=== PATIENT | female | born 1940 | race African-American/Black ===

== ENCOUNTER 2018-11-28 09:36 | Emergency (ER) | payer OTHER ==
[2018-11-28 09:50] VITALS: BP 147/67; PULSE 76; TEMP 98; BMI 27.3
--- NOTE | 2018-11-28 10:51 | PDOC ---
History of Present Illness - General Chief Complaint: Respiratory Stated Complaint: COLD SYMPTOMS / NECK PAIN Time Seen by Provider: 11/28/18 10:23 History Source: Patient Exam Limitations: No Limitations - History of Present Illness Initial Comments: 11/28/18 10:46 Patient is a 78F with history of hyperparathyroidism and osteoporosis here today complaining of 3 days of left ear pain and neck stiffness. Her daughters, at bedside, report that her hearing has been decreased on the left side as well. Denies fevers, chills, nausea, vomiting. Denies chest pain, shortness of breath. Endorses a mild cough. Denies abdominal pain. Family denies facial droop , slurred speech, focal weaknesses. Neck pain started after she had woken up, worsens with movement. Patient placed tissue in ear due to bloody serious discharge from left ear. Past History - Past Medical History Allergies/Adverse Reactions: Allergies Allergy/AdvReac Type Severity Reaction Status Date / Time No Known Allergies Allergy Verified 11/28/18 09:49 Home Medications: Ambulatory Orders Amoxicillin - [Amoxicillin 875mg Tablet -] 875 mg PO BID #20 tablet 11/28/18 Ciprofloxacin HCl/Dexameth [Ciprodex Otic Suspension] 4 drop BID #1 bottle Lidocaine 5% Patch [Lidoderm -] 1 patch TP DAILY #7 patch 11/28/18 COPD: No Thyroid Disease: Yes (hypo parathyroid) Other medical history: osteparosis - Suicide/Smoking/Psychosocial Hx Smoking History: Never smoked Review of Systems - Review of Systems Comments:: 11/28/18 10:51 GENERAL/CONSTITUTIONAL: No fever or chills. No weakness. HEAD, EYES, EARS, NOSE AND THROAT: No change in vision. +L ear pain +ear discharge. No sore throat. CARDIOVASCULAR: No chest pain or shortness of breath RESPIRATORY: +cough, no wheezing, or hemoptysis. GASTROINTESTINAL: No nausea, vomiting, diarrhea or constipation. GENITOURINARY: No dysuria, frequency, or change in urination. MUSCULOSKELETAL: No joint or muscle swelling or pain. No neck or back pain. SKIN: No rash NEUROLOGIC: No headache, vertigo, loss of consciousness, or change in strength/ sensation. ENDOCRINE: No increased thirst. No abnormal weight change HEMATOLOGIC/LYMPHATIC: No anemia, easy bleeding, or history of blood clots. ALLERGIC/IMMUNOLOGIC: No hives or skin allergy. *Physical Exam - Vital Signs Last Vital Signs Temp Pulse Resp BP Pulse Ox 98.0 F 76 18 147/67 100 11/28/18 09:45 11/28/18 09:45 11/28/18 09:45 11/28/18 09:45 11/28/18 09:45 - Physical Exam Comments: 11/28/18 10:53 GENERAL: Awake, alert, and fully oriented, in no acute distress HEAD: No signs of trauma, normocephalic, atraumatic EYES: PERRLA, EOMI, sclera anicteric, conjunctiva clear ENT:TM and EAC normal on R. L ear shows bloody serous discharge with tenderness to ear movement, L TM effusion, no mastoid tenderness NECK: Normal ROM, supple, tender along L trapezius LUNGS: No distress, speaks full sentences, clear to auscultation bilaterally HEART: Regular rate and rhythm, normal S1 and S2, no murmurs, rubs or gallops, peripheral pulses normal and equal bilaterally. ABDOMEN: Soft, nontender, normoactive bowel sounds. No guarding, no rebound. No masses EXTREMITIES: Normal inspection, Normal range of motion, no edema. No clubbing or cyanosis. NEUROLOGICAL: Cranial nerves II through XII grossly intact. Normal speech, normal gait, no focal sensorimotor deficits SKIN: Warm, Dry, normal turgor, no rashes or lesions noted. Moderate Sedation - Procedure Monitoring Vital Signs: Procedure Monitoring Vital Signs Temperature 98.0 F 11/28/18 09:45 Pulse Rate 76 11/28/18 09:45 Respiratory Rate 18 11/28/18 09:45 Blood Pressure 147/67 11/28/18 09:45 O2 Sat by Pulse Oximetry (%) 100 11/28/18 09:45 Medical Decision Making - Medical Decision Making 11/28/18 10:55 Patient is 78F here today with acute otitis media with otitis externa. Neck pain is msk, no alarm symptoms. Will treat OM and OE with amoxicillin and ciprodex. Will treat neck pain with lidoderm patches and tylenol. *DC/Admit/Observation/Transfer Diagnosis at time of Disposition: Otitis media, Otitis externa, Neck pain - Discharge Dispostion Disposition: HOME Condition at time of disposition: Good Decision to Admit order: No - Prescriptions Prescriptions: Amoxicillin - [Amoxicillin 875mg Tablet -] 875 mg PO BID #20 tablet Ciprofloxacin HCl/Dexameth [Ciprodex Otic Suspension] 4 drop BID #1 bottle Lidocaine 5% Patch [Lidoderm -] 1 patch TP DAILY #7 patch - Referrals Referrals: Fred Potts MD [Primary Care Provider] - - Patient Instructions Printed Discharge Instructions: DI for Otitis Externa, DI for Otitis Media ( Middle Ear Infection)-Child Additional Instructions: Please follow up with your primary care doctor this week. Please take tylenol 650mg for pain up to 4 times per day. You may also use the lidocaine patches for pain. If your insurance does not cover the 5% lidocaine patch, you can get a 4% version over the counter. Please return if you have any new, worsening or concerning symptoms, especially fever, increasing pain, and if the pain does not improve in 3-4 days. - Post Discharge Activity
[2018-11-28] MEDS ORDERED: ACETAMINOPHEN 325 MG TABLET (FP) PO ONE (10:57)
[2018-11-28] MEDS ORDERED: LIDOCAINE 5% TOPICAL PATCH TP ONE (10:57)
[2018-11-28] MEDS ORDERED: AMOXICILLIN 500 MG CAPSULE (FP) PO ONE (10:57)
--- NOTE | 2018-11-28 11:02 | PDOC ---
Attending Attestation - Resident Resident Name: DavisSadiq grant - ED Attending Attestation I have performed the following: I have examined & evaluated the patient, The case was reviewed & discussed with the resident, I agree w/resident's findings & plan, Exceptions are as noted - HPI HPI: 11/28/18 11:02 78 year old female c/ pmh osteoporosis, hyperparathyroidism p/w neck pain x 3 days and left ear pain today. The patient had reported she slept wrong and felt left neck stiffness worsened with movement. Denies numbness, weakness, tingling. Reproducible with palpitation along sternocleidomastoid muscle and lateral neck movement. Had taken tylenol with significant improvement of symptoms. Today, however, noted that she had some left ear pain along tragus and inner ear. Had some discharge and some blood. Pt was also using Qtip but doesn't think she injured herself with it. Noted decreased hearing from left side and left sided headache. No fevers, chills. Came into ED. - Physicial Exam PE: 11/28/18 11:05 GENERAL: Awake, alert, and fully oriented, in no acute distress HEAD: No signs of trauma EYES: PERRLA, EOMI, sclera anicteric, conjunctiva clear ENT: Auricles normal inspection, hearing grossly normal, nares patent, Moist mucosa Negative tenderness at mastoid. mild left tragus tenderness. left ear with effusion and some small amounts of blood. NECK: Normal ROM, supple. No c-spine tenderness. +discomfort elicited palpation along left cervical paraspinal neck and lateral head movements. EXTREMITIES: Normal range of motion, no edema. No clubbing or cyanosis. No cords, erythema, or tenderness NEUROLOGICAL: Cranial nerves II through XII grossly intact. Normal speech SKIN: Warm, Dry, normal turgor, no rashes or lesions noted. - Medical Decision Making 11/28/18 11:06 Vital Signs Temp Pulse Resp BP Pulse Ox 98.0 F 76 18 147/67 100 11/28/18 09:45 11/28/18 09:45 11/28/18 09:45 11/28/18 09:45 11/28/18 09:45 Neck pain: this is consistent with neck spasm. No bony tenderness. tylenol and lidoderm patches PRN or heat packs PRN. Information explained to pt and pt's family, who agrees. Left ear: likely otitis media with effusion + mild otitis externa. No concerns for mastoiditis at this time. Amoxicillin 875 PO BID x 10 days. Ciprodex ear drops Follow up with PMD.
[2018-11-28] MEDS ORDERED: ACETAMINOPHEN 325 MG TABLET (FP) ONE (11:06)
[2018-11-28] MEDS ORDERED: AMOX TR/POT CLAV 875MG/125MG TABLETS (FP) ONE (11:07)
[2018-11-28] MEDS ORDERED: LIDOCAINE 5% TOPICAL PATCH ONE (11:07)
[2018-11-28] MEDS ORDERED: LIDOCAINE PATCH REMOVAL MC SCH (22:00)
== END 2018-11-28 11:23 | disposition home or self-care (01) ==
LOC: JER 09:36
DX: H66.92 Otitis media, unspecified, left ear (principal); H60.502 Unspecified acute noninfective otitis externa, left ear
CPT/HCPCS: 99282-25